=== PATIENT | male | born 1985 | race Caucasian/White ===

== ENCOUNTER 2017-05-09 14:25 | Emergency (ER) | payer SELFPAY ==
[2017-05-09 14:42] VITALS: BP 123/80
[2017-05-09] MEDS ORDERED: LIDOCAINE 1%/EPINEPHRINE INJ 20 ML VIAL INJ ONE (14:56)
[2017-05-09] MEDS ORDERED: CEPHALEXIN 500 MG CAPSULE PO ONE (15:00)
[2017-05-09] MEDS ORDERED: OXYCODONE-ACETAMINOPHEN 5-325 MG TABLET PO ONE (15:00)
[2017-05-09] MEDS ORDERED: LIDOCAINE 1% INJ-PF (10 MG/ML) 30 ML SDV INJ ONE (15:44)
--- NOTE | 2017-05-09 15:44 | RADIOLOGY REPORT (SQ) ---
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 EXAM PARAMETERS: NUMBER OF VIEWS: Three views. TECHNIQUE: AP, lateral and oblique radiographic images acquired of the right hand. LIMITATIONS: None. FINDINGS: MINERALIZATION: Normal. BONES: No acute fracture or dislocation. No worrisome bone lesions. JOINTS: No effusions. SOFT TISSUES: No soft tissue swelling. No foreign body. OTHER: No other significant finding. IMPRESSION: NEGATIVE STUDY OF THE RIGHT HAND. NO RADIOGRAPHIC EVIDENCE OF ACUTE INJURY. TECHNICAL DOCUMENTATION: JOB ID: [id number] [employer]- All Rights Reserved
[2017-05-09] MEDS ORDERED: HYDROCODONE/ACETAMINOPHEN 5-325 MG 6 TAB/DSPK PO PRN (16:24)
--- NOTE | 2017-05-09 16:25 | ER Document Report ---
ED Wound - General Chief Complaint: Laceration Stated Complaint: RIGHT HAND INJURY Time Seen by Provider: 05/09/17 14:50 TRAVEL OUTSIDE OF THE [place] 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 Occurred: Just prior to arrival Onset/Duration: Sudden Context: Injury - right pal along the palmar aspect of the fifth metacarpal Capillary refill: < 3 seconds Sensations intact: Yes Distal pulses present: Yes Associated Symptoms: None - Related Data Allergies/Adverse Reactions: Pertussis Immune Globulin * [Pertussis Immune Globulin] Allergy (Verified 14:38) pertussis vaccine,adsorbed [Pertussis Vaccine,Adsorbed] Allergy (Verified 14:38) pertussis vaccine,fluid [Pertussis Vaccine,Fluid] Allergy (Verified 05/09/17 14: 38) Past Medical History - Social History Smoking Status: Current Every Day Smoker Chew tobacco use (# tins/day): No Frequency of alcohol use: None Drug Abuse: None Family History: Arthritis, CAD, CVA, DM, Hyperlipidemia, Hypertension, Malignancy Patient has suicidal ideation: No Patient has homicidal ideation: No Renal/ Medical History: Denies: Hx Peritoneal Dialysis Musculoskeltal Medical History: Reports Hx Musculoskeletal Deformity, Reports Hx Musculoskeletal Trauma Traumatic Medical History: Reports: Hx Fractures - finger Past Surgical History: Reports: Hx Oral Surgery - Immunizations Immunizations up to date: Yes Hx Diphtheria, Pertussis, Tetanus Vaccination: Yes - 2013 Review of Systems - Review of Systems Constitutional: No symptoms reported Musculoskeletal: Other - pain with movement Skin: See HPI -: Yes All other systems reviewed and negative Physical Exam - Vital signs Vitals: Temp Pulse Resp BP Pulse Ox 98.2 F 80 20 123/80 97 05/09/17 14:39 05/09/17 14:39 05/09/17 14:39 05/09/17 14:39 05/09/17 14:39 - General General appearance: Appears well, Alert In distress: None - Cardiovascular Pulses: Normal: Radial Normal capillary refill: Yes - Extremities Elbow: Normal Forearm: Normal Wrist: Normal Hand: Tender. No: Deformity, Dislocation, Tendon deficit - Skin Skin irregularity: Laceration - 2cm past dermis into subq fat. no tendon involvment. no bleeeding Course - Re-evaluation Re-evalutation: 05/09/17 21:15 Is a 31-year-old male who is hemodynamic stable, no acute distress afebrile. Laceration irrigated and closed at the bedside. Closed with 4 5-0 nylon interrupted suture. Patient tolerated procedure well. Patient placed on prophylactic antibiotics. Patient to follow-up with primary care in 8-10 days of the stitches removed. Patient given strict return precautions. Patient agrees with plan. - Vital Signs Vital signs: Temp Pulse Resp BP Pulse Ox 98.2 F 80 20 123/80 97 05/09/17 14:39 05/09/17 14:39 05/09/17 14:39 05/09/17 14:39 05/09/17 14:39 - Diagnostic Test Radiology reviewed: Image reviewed, Reports reviewed Procedures - Laceration/Wound Repair Right Hand Wound length (cm): 2 Wound's Depth, Shape: Superficial, Linear Laceration pre-procedure: Sterile PPE donned, Betadine prep applied, Sterile drapes applied Anesthetic type: 1% Lidocaine Volume Anesthetic (mLs): 2 Wound explored: Clean Irrigated w/ Saline (mLs): 100 Wound Repaired With: Sutures Suture Size/Type: 5:0, Nylon Number of Sutures: 4 Post-procedure NV exam normal: Yes Complications: No Discharge - Discharge Clinical Impression: Laceration Condition: Good Disposition: HOME, SELF-CARE Instructions: Antibiotic Ointment Protection ([facility]), Laceration Care ([facility]), Prophylactic Antibiotic ([facility]), Soap Cleansing ([facility]), Oral Narcotic Medication ( [facility]) Additional Instructions: Your sutures need to come out in 8-10 days Do not submerge in water Keep clean and dry Prescriptions: Cephalexin Monohydrate [Keflex 500 mg Capsule] 500 mg PO QID #20 capsule Ibuprofen [Motrin 800 mg Tablet] 800 mg PO Q8H PRN #30 tab PRN Reason: Forms: Return to Work Referrals: [facility] [Provider Group] - Follow up as needed
== END 2017-05-09 16:51 | disposition home or self-care (01) ==
LOC: ER 14:25
PROC: 0HQFXZZ Repair Right Hand Skin, External Approach (ICD-10-PCS; principal; 2017-05-09)
DX: S61.411A Laceration without foreign body of right hand, initial encounter (principal); W26.8XXA Contact with other sharp object(s), not elsewhere classified, initial encounter; F17.200 Nicotine dependence, unspecified, uncomplicated; Z88.7 Allergy status to serum and vaccine
CPT/HCPCS: 99283; 73130; 12001; J3490

== ENCOUNTER 2017-09-04 21:00 | Emergency (ER) | payer SELFPAY ==
[2017-09-04 21:25] VITALS: BP 120/79
--- NOTE | 2017-09-04 21:53 | ER Document Report ---
HPI - HPI Pain Level: 4 Context: Patient is a 32-year-old male presents emergency department complaining of a wound on his left ear. Patient states that he showed up yesterday and is tender to touch and red and hot without any active drainage. He denies any injury - DERM Skin Color: Normal, [place] Past Medical History - Social History Smoking Status: Current Every Day Smoker Family History: Arthritis, CAD, CVA, DM, Hyperlipidemia, Hypertension, Malignancy Patient has suicidal ideation: No Patient has homicidal ideation: No Renal/ Medical History: Denies: Hx Peritoneal Dialysis Musculoskeltal Medical History: Reports Hx Musculoskeletal Deformity, Reports Hx Musculoskeletal Trauma Traumatic Medical History: Reports: Hx Fractures - finger Past Surgical History: Reports: Hx Oral Surgery - Immunizations Immunizations up to date: Yes Hx Diphtheria, Pertussis, Tetanus Vaccination: Yes - 2013 Vertical Provider Document - CONSTITUTIONAL Agree With Documented VS: Yes Notes: PHYSICAL EXAM GENERAL: Alert, interacts well. HEENT: NCAT, pale conjunctiva, extraocular movements intact, pupils PERRL. external ear normal, no evidence of external auditory canal tenderness, blood/ drainage, cerumen impaction, TM intact without evidence of effusion, bulging, injection, MMM NECK: Full range of motion. Supple. Trachea midline. LUNGS: Clear to auscultation bilaterally, no wheezes, rales, or rhonchi. No respiratory distress. HEART: Regular rate and rhythm. No murmurs, gallops, or rubs. NEUROLOGICAL: Alert and oriented x4. Normal speech. PSYCH: Normal affect, normal mood. SKIN: Warm, dry, normal turgor. No rashes or lesions noted. Lesion on pinna of the left ear that is tender to touch with surrounding erythema and central head - INFECTION CONTROL TRAVEL OUTSIDE OF THE [place] IN LAST 30 DAYS: No - RESPIRATORY O2 Sat by Pulse Oximetry: 98 Course - Re-evaluation Re-evalutation: 09/04/17 22:45 patient is a 32-year-old male is hemodynamically stable, no acute distress afebrile. Presentation consistent with superficial cellulitis. Patient initiated on antibiotics. Site was punctured with a needle at the bedside for minimal purulent material. Patient follow-up with primary care as needed. Patient agrees with plan - Vital Signs Vital signs: Temp Pulse Resp BP Pulse Ox 98.8 F 71 16 120/79 98 09/04/17 21:20 09/04/17 21:20 09/04/17 21:20 09/04/17 21:20 09/04/17 21:20 Discharge - Discharge Clinical Impression: Cellulitis Condition: Good Disposition: HOME, SELF-CARE Instructions: Cellulitis ([facility]) Additional Instructions: Please utilize warm compresses at the site and please take antibiotics as prescribed. Otherwise he can of Tylenol Motrin [id number] for your pain. Prescriptions: Cephalexin Monohydrate [Keflex 500 mg Capsule] 500 mg PO QID #20 capsule
[2017-09-04] MEDS ORDERED: CEPHALEXIN 500 MG CAPSULE PO ONE (22:50)
[2017-09-04] MEDS ORDERED: ACETAMINOPHEN WITH CODEINE #3 TABLET PO ONE (22:50)
== END 2017-09-04 23:04 | disposition home or self-care (01) ==
LOC: ER 21:00
DX: L03.90 Cellulitis, unspecified (principal); F17.200 Nicotine dependence, unspecified, uncomplicated
CPT/HCPCS: 99282

== ENCOUNTER 2018-01-20 14:24 | Emergency (ER) | payer OTHER ==
[2018-01-20] MEDS ORDERED: LIDOCAINE 1% INJ-PF (10 MG/ML) 30 ML SDV INJ ONE (14:50)
[2018-01-20] MEDS ORDERED: TETANUS/DIPHTHERIA TOX-ADULT 0.5 ML SYR (>=7YO) IM ONE (14:55)
--- NOTE | 2018-01-20 15:35 | ER Document Report ---
ED Hand/Wrist Injury - General Chief Complaint: Laceration Stated Complaint: HAND LACERATION Time Seen by Provider: 01/20/18 14:40 Mode of Arrival: Ambulatory Information source: Patient Notes: 32-year-old male presents to ED for laceration to the hand up to between the second and third finger. States when he first did that he had numbness to both the second and third finger. He states he was cutting a muffler pipe with a tool and it slipped and the muffler pipe cut his hand. He states his tetanus is not up-to-date and he is allergic to pertussis. He is alert and oriented respirations labored unlabored speaking in full even sentences. TRAVEL OUTSIDE OF THE [place] IN LAST 30 DAYS: No - HPI Injury to: Hand Onset: Just prior to arrival Where: Work Timing: Still present Quality of pain: Sharp, Throbbing Severity: Moderate Pain Level: 4 Context: Laceration - Related Data Allergies/Adverse Reactions: Pertussis Immune Globulin * [Pertussis Immune Globulin] Allergy (Verified 14:31) pertussis vaccine,adsorbed [Pertussis Vaccine,Adsorbed] Allergy (Verified 14:31) pertussis vaccine,fluid [Pertussis Vaccine,Fluid] Allergy (Verified 01/20/18 14: 31) Past Medical History - General Information source: Patient - Social History Smoking Status: Current Every Day Smoker Cigarette use (# per day): Yes - 1-1 1/2 packs per day Chew tobacco use (# tins/day): No Smoking Education Provided: Yes - 4 minutes Frequency of alcohol use: None Drug Abuse: None Lives with: Family Family History: Arthritis, CAD, CVA, DM, Hyperlipidemia, Hypertension, Malignancy. denies: COPD, Thyroid Disfunction Patient has suicidal ideation: No Patient has homicidal ideation: No - Past Medical History Cardiac Medical History: Reports: None EENT Medical History: Reports: None Neurological Medical History: Reports: None Endocrine Medical History: Reports: None Renal/ Medical History: Reports: None Malignancy Medical History: Reports None GI Medical History: Reports: Hx Diverticulitis Musculoskeltal Medical History: Reports Hx Musculoskeletal Deformity, Reports Hx Musculoskeletal Trauma Skin Medical History: Reports None Psychiatric Medical History: Reports: None Traumatic Medical History: Reports: Hx Fractures - finger Infectious Medical History: Reports: None Past Surgical History: Reports: Hx Oral Surgery - Immunizations Immunizations up to date: Yes Hx Diphtheria, Pertussis, Tetanus Vaccination: Yes - 01/20/2018 Review of Systems - Review of Systems Constitutional: No symptoms reported EENT: No symptoms reported Cardiovascular: No symptoms reported Respiratory: No symptoms reported Gastrointestinal: No symptoms reported Genitourinary: No symptoms reported Male Genitourinary: No symptoms reported Musculoskeletal: No symptoms reported Skin: Other - Laceration to the back of the right hand between the second and third finger down to about residential down the back of the hand Hematologic/Lymphatic: No symptoms reported Neurological/Psychological: No symptoms reported -: Yes All other systems reviewed and negative Physical Exam - Vital signs Vitals: Temp Pulse Resp BP Pulse Ox 98.0 F 85 14 118/70 96 01/20/18 14:35 01/20/18 14:35 01/20/18 14:35 01/20/18 14:35 01/20/18 14:35 Interpretation: Normal - General General appearance: Appears well, Alert - HEENT Head: Normocephalic, Atraumatic Eyes: Normal Pupils: PERRL - Respiratory Respiratory status: No respiratory distress Chest status: Nontender Breath sounds: Normal Chest palpation: Normal - Cardiovascular Rhythm: Regular Heart sounds: Normal auscultation Murmur: No - Abdominal Inspection: Normal Distension: No distension Bowel sounds: Normal Tenderness: Nontender Organomegaly: No organomegaly - Back Back: Normal, Nontender - Extremities General upper extremity: Normal inspection, Nontender, Normal color, Normal ROM , Normal temperature General lower extremity: Normal inspection, Nontender, Normal color, Normal ROM , Normal temperature, Normal weight bearing. No: Taisha's sign - Neurological Neuro grossly intact: Yes Cognition: Normal Orientation: AAOx4 Berne Coma Scale Eye Opening: Spontaneous Berne Coma Scale Verbal: Oriented Shaun Coma Scale Motor: Obeys Commands Shaun Coma Scale Total: 15 Speech: Normal Motor strength normal: LUE, RUE, LLE, RLE Sensory: Normal - Psychological Associated symptoms: Normal affect, Normal mood - Skin Skin Temperature: Warm Skin Moisture: Dry Skin Color: Normal Skin irregularity: Laceration - Right hand posterior 5 cm flap Location of irregularity: Extremities - Back of right hand Irregularity with: Tenderness Course - Re-evaluation Re-evalutation: 01/20/18 21:07 Patient was treated with doxycycline and emergency room and discharged home with a prescription for Percocet and doxycycline. Patient was also put into a splint to recheck the sutures. Patient was instructed to remove the splint for cleaning and dressing changes and then to replace the splint back as instructed. Patient was discharged home. was able to verbalize understanding of instructions and agree with treatment plan. - Vital Signs Vital signs: Temp Pulse Resp BP Pulse Ox 97.7 F 66 18 126/73 H 97 01/20/18 16:15 01/20/18 16:15 01/20/18 16:15 01/20/18 16:15 01/20/18 16:15 Procedures - Laceration/Wound Repair Right Hand Time completed: 16:05 Wound length (cm): 5 Wound's Depth, Shape: Irregular, Flap Laceration pre-procedure: Sterile PPE donned, Sterile drapes applied, Shur- Clens applied Anesthetic type: 1% Lidocaine Volume Anesthetic (mLs): 7 Irrigated w/ Saline (mLs): 500 Wound Repaired With: Sutures Suture Size/Type: 4:0, Ethilon Number of Sutures: 9 Layer Closure?: No Post-procedure wound care: Sterile dressing applied, Splint applied Post-procedure NV exam normal: Yes Complications: No Discharge - Discharge Clinical Impression: Hand laceration Qualifiers: Encounter type: initial encounter Foreign body presence: without foreign body Laterality: right Qualified Code(s): S61.411A - Laceration without foreign body of right hand, initial encounter Condition: Stable Disposition: HOME, SELF-CARE Additional Instructions: Hand Laceration A laceration on the hand can present special problems. It may be difficult to keep the wound dry. Motion of the fingers can disturb the healing edges. Your work may involve exposure to damaging chemicals or water. Keep the wound clean and dry. If you can't keep the cut dry, undisturbed, and free of chemical exposure, please discuss this with the doctor. If any water or chemical gets onto the dressing, remove it, blot the wound dry, then apply a fresh bandage. Dressings should be changed every day. If you feel the stitches pulling as you move the hand, a splint or other form of protection is needed. If any signs of infection occur (swelling, redness, increasing tenderness, red streaks, tender lumps in the armpit, or fever), see the doctor immediately. SOAP CLEANSING: Gently wash the wound daily using a mild soap (like Ivory, Phisoderm, Neutrogena). Use warm water, rubbing gently until all debris, ooze, and crusting have been washed from the wound. Allow to dry briefly (about 10 minutes) after cleaning. Repeat this cleansing at least three times a day for the first two days and then once or twice a day. ANTIBIOTIC OINTMENT PROTECTION: Your wounds are such that dressing them is not practical or optional. After cleansing, you should apply a thin coating of antibiotic ointment ( Bacitracin, not Neosporin) to the wounds at least three times daily. This lessens infection risk, and may decrease the amount of scarring. Use a q-tip or dull butter knife, not your finger, to apply this ointment. Any debris or ooze which builds up in the ointment should be gently rubbed off with a sterile gauze pad. Harder crusting may need to be gently scrubbed off with a clean wash cloth with soap and warm water, perhaps applying a warm, wet wash cloth to the wound for ten minutes first. Development of redness, severe itching, or blistering may mean allergy to the ointment. See the doctor. Doxycycline Doxycycline (Vibramycin, Doryx) is an antibiotic of the tetracycline family. This type of drug is useful for infections of the respiratory tract and genital tract, and is sometimes used for intestinal infections. Unlike most tetracyclines, doxycycline can be taken with food. It is longer acting, and (usually) less prone to side effects than regular tetracycline. Tetracycline antibiotics can stain immature teeth and SHOULD NOT BE TAKEN BY CHILDREN, NURSING MOTHERS, OR WOMEN. Tetracyclines can make you more prone to sunburn. Abdominal cramping, nausea, and diarrhea are occasional side effects. Women may experience vaginal yeast infections. Call the doctor at once if you develop hives, itching, shortness of breath , or lightheadedness. ORAL NARCOTIC MEDICATION: You have been given a prescription for pain control. This medication is a narcotic. It's best taken with food, as nausea can result if taken on an empty stomach. Don't operate machinery or drive within six hours of taking this medication. Do not combine this medicine with alcohol, or with any medication which can cause sedation (such as cold tablets or sleeping pills) unless you get permission from the physician. Narcotics tend to cause constipation. If possible, drink plenty of fluids and eat a diet high in fiber and fruits. TETANUS IMMUNIZATION GIVEN: You have been given an immunization against tetanus. Please record this in your records. In general, a booster is needed only once every 10 years. The tetanus shot protects against tetanus or "lockjaw," which is a complication of certain wound infections (the tetanus shot cannot protect against the actual infection). The immunization site may become warm and red due to local reaction. If this occurs, apply warm compresses and take aspirin or ibuprofen to reduce inflammation and discomfort. Return for evaluation if the reaction becomes severe. FOLLOW-UP CARE: Please return in __3___ days for an infection check and dressing change. Your sutures should be removed in ___10__ days. To facilitate a timely removal of your sutures, you may return to the Emergency Department at [facility]. You do not need to call for an appointment, but the best time to come in for suture removal is early in the morning. If you have been referred to another physician for follow-up care, call that physicians office for an appointment as you were instructed. If you experience a significant change in your laceration, or if you are concerned there may be an infection (swelling, redness, drainage, increasing tenderness, red streaks, tender lumps in the armpit or groin above the laceration, or fever) , return to the Emergency Department immediately re-evaluation. Prescriptions: Oxycodone HCl/Acetaminophen [Percocet 5-325 mg Tablet] 1 tab PO Q6HP PRN #7 tablet PRN Reason: Doxycycline Hyclate 100 mg PO BID #14 tablet Forms: Smoking Cessation Education, Restricted Release, Return to Work Referrals: VIRAL KEANE DO [ACTIVE STAFF] - 01/23/18
[2018-01-20] MEDS ORDERED: DOXYCYCLINE HYCLATE 100 MG TABLET PO ONE (15:54)
[2018-01-20 16:22] VITALS: BP 126/73
== END 2018-01-20 16:22 | disposition home or self-care (01) ==
LOC: ER 14:24
PROC: 0HQFXZZ Repair Right Hand Skin, External Approach (ICD-10-PCS; principal; 2018-01-20)
DX: S61.411A Laceration without foreign body of right hand, initial encounter (principal); R20.0 Anesthesia of skin; W27.8XXA Contact with other nonpowered hand tool, initial encounter; F17.210 Nicotine dependence, cigarettes, uncomplicated
CPT/HCPCS: 99406; 99282; 90471; 90714; 12002; J3490

== ENCOUNTER 2019-09-13 22:40 | Emergency (ER) | payer SELFPAY ==
[2019-09-13 23:06] LABS: ABSOLUTE EOSINOPHILS # (AUTO) 0.2 10^3/uL (0.0-0.6); ABSOLUTE MONOCYTES (AUTO) 0.8 10^3/uL (0.1-1.4); TOTAL CELLS COUNTED % (AUTO) 100 %
[2019-09-13 23:13] LABS: ABSOLUTE LYMPHOCYTES (AUTO) 2.1 10^3/uL (0.5-4.7); ABSOLUTE NEUT (AUTO) 5.8 10^3/uL (1.7-8.2); BASOPHILS % (AUTO) 0.5 % (0-2); EOSINOPHILS % (AUTO) 2.3 % (0-6); HEMATOCRIT 44.1 % (37.9-51.0); HEMOGLOBIN 15.1 g/dL (13.5-17.0); LYMPHOCYTES % (AUTO) 23.1 % (13-45); MEAN CORPUSCULAR HEMOGLOBIN 30.7 pg (27.0-33.4); MEAN CORPUSCULAR HGB CONC 34.2 g/dL (32.0-36.0); MEAN CORPUSCULAR VOLUME 90 fl (80-97); MONOCYTES % (AUTO) 8.9 % (3-13); PLATELET COUNT 263 10^3/uL (150-450); RED BLOOD COUNT 4.91 10^6/uL (4.35-5.55); RED CELL DISTRIBUTION WIDTH 14.1 % (11.5-14.0); SEGMENTED NEUTROPHILS % (AUTO) 65.2 % (42-78)
[2019-09-13 23:22] LABS: ALBUMIN 4.4 g/dL (3.5-5.0); ALKALINE PHOSPHATASE 46 U/L (38-126); ANION GAP 9 (5-19); ASPARTATE AMINO TRANSFERASE 19 U/L (17-59); BILIRUBIN,DIRECT 0.1 mg/dL (0.0-0.4); BILIRUBIN,TOTAL 0.6 mg/dL (0.2-1.3); BLOOD UREA NITROGEN 12 mg/dL (7-20); CALCIUM 9.8 mg/dL (8.4-10.2); CARBON DIOXIDE 30 mmol/L (22-30); CHLORIDE 107 mmol/L (98-107); GLUCOSE 80 mg/dL (75-110); POTASSIUM 4.1 mmol/L (3.6-5.0); TOTAL PROTEIN 7.3 g/dL (6.3-8.2)
[2019-09-13 23:25] LABS: APPEARANCE,URINE CLOUDY; BILIRUBIN,URINE NEGATIVE (NEGATIVE); COLOR,URINE YELLOW; GLUCOSE, URINE NEGATIVE (NEGATIVE); KETONES,URINE NEGATIVE (NEGATIVE); LEUKOCYTE ESTERASE,URINE NEGATIVE (NEGATIVE); NITRITE,URINE NEGATIVE (NEGATIVE); PROTEIN,URINE NEGATIVE (NEGATIVE); URINE SPECIFIC GRAVITY 1.018
[2019-09-14] MEDS ORDERED: DIAZEPAM INJ 10 MG/2 ML DISP.SYRIN IV ONE (01:40)
[2019-09-14] MEDS ORDERED: KETOROLAC TROMETHAMINE INJ/PF 30 MG/1 ML SDV IV ONE (01:41)
[2019-09-14] MEDS ORDERED: NORMAL SALINE 1000 ML 1,000 ML IV ONE (01:41)
--- NOTE | 2019-09-14 02:16 | ER Document Report ---
ED General - General Chief Complaint: Abdominal Pain Stated Complaint: ABDOMINAL PAIN Time Seen by Provider: 09/14/19 01:29 Notes: Patient is a 34-year-old male that comes emergency department for chief complaint of pain that wraps around from his side to both his front at the lower part of the ribs on the right and also around to his back. He states it is much worse with any movement and he cannot get comfortable or sleep. He states this has been worsening over the past 3 days or so. 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 He denies difficulty breathing, fever, dizziness, nausea/vomiting. He denies specific pain in the abdomen other than at the lower ribs where he indicates it. He denies any daily medications. He drinks alcohol occasionally, smokes, denies recreational drugs, denies any surgeries. TRAVEL OUTSIDE OF THE [place] IN LAST 30 DAYS: No - Related Data Allergies/Adverse Reactions: Pertussis Immune Globulin * [Pertussis Immune Globulin] Allergy (Verified 09/13/19 22:41) pertussis vaccine,adsorbed [Pertussis Vaccine,Adsorbed] Allergy (Verified 09/13/19 22:41) pertussis vaccine,fluid [Pertussis Vaccine,Fluid] Allergy (Verified 09/13/19 22:41) Past Medical History - General Information source: Patient - Social History Smoking Status: Current Every Day Smoker Frequency of alcohol use: Occasional Drug Abuse: None Lives with: Family Family History: Arthritis, CAD, CVA, DM, Hyperlipidemia, Hypertension, Malignancy. denies: COPD, Thyroid Disfunction Patient has suicidal ideation: No Patient has homicidal ideation: No Renal/ Medical History: Denies: Hx Peritoneal Dialysis GI Medical History: Reports: Hx Diverticulitis Musculoskeletal Medical History: Reports Hx Musculoskeletal Deformity, Reports Hx Musculoskeletal Trauma Traumatic Medical History: Reports: Hx Fractures - finger Past Surgical History: Reports: Hx Oral Surgery - Immunizations Immunizations up to date: Yes Hx Diphtheria, Pertussis, Tetanus Vaccination: Yes - 01/20/2018 Review of Systems - Review of Systems Constitutional: No symptoms reported EENT: No symptoms reported Cardiovascular: No symptoms reported Respiratory: No symptoms reported Gastrointestinal: No symptoms reported Genitourinary: No symptoms reported Male Genitourinary: No symptoms reported Musculoskeletal: See HPI Skin: No symptoms reported Hematologic/Lymphatic: No symptoms reported Neurological/Psychological: No symptoms reported Physical Exam - Vital signs Vitals: Temp Pulse Resp BP Pulse Ox 97.8 F 65 18 126/72 H 99 09/13/19 22:45 09/13/19 22:45 09/13/19 22:45 09/13/19 22:45 09/13/19 22:45 - Notes Notes: GENERAL: Alert, interacts well. Moves with obvious discomfort but when he is still he has no signs of distress HEAD: Normocephalic, atraumatic. EYES: Pupils equal, round, and reactive to light. Extraocular movements intact. ENT: Oral mucosa moist, tongue midline. Oropharynx unremarkable. Airway patent. NECK: Full range of motion. Supple. Trachea midline. LUNGS: Clear to auscultation bilaterally, no wheezes, rales, or rhonchi. No respiratory distress. There is tenderness over the right lower and lateral ribs along the right side. No crepitus or swelling. No signs of trauma. HEART: Regular rate and rhythm. No murmur ABDOMEN: Soft, non-tender. Non-distended. EXTREMITIES: Moves all 4 extremities spontaneously. No edema, normal radial and dorsalis pedis pulses bilaterally. No cyanosis. BACK: Tenderness along the left lateral back continuing from nontender location along the left side extending to the parathoracic musculature. Multiple areas of rigid muscles consistent with muscle spasm. No signs of trauma. No cervical, thoracic, lumbar midline tenderness. No saddle anesthesia, normal dist al neurovascular exam. Moves all extremities in full range of motion. NEUROLOGICAL: Alert and oriented x3. Normal speech. Cranial nerves II through XII grossly intact. PSYCH: Normal affect, normal mood. SKIN: Warm, dry, normal turgor. No rashes or lesions noted. Course - Re-evaluation Re-evalutation: Patient appears comfortable unless he moves, when he moves he has obvious discomfort and wincing, he is tender muscles along the right lateral lower ribs and especially over the posterior back extending to the parathoracic muscles. He also has rigid muscle fibers in these areas. Strongly a musculoskeletal component, this is supported by patient's reported work and worsening symptoms. No signs of trauma. I did review work-up from triage. CBC, chemistry, lipase unremarkable. Because of his areas of symptoms like chest x-ray was performed, this x-ray appears to show pneumonia however. Patient does not have fever or cough. I still believe this is musculoskeletal in nature but I discussed with patient and because this is located on the same side he will be placed on antibiotics for possible atypical pneumonia. He was also given muscle relaxers while he was here, steroids while he was here. Family requesting to leave at this time, patient reevaluated and states he feels much improved, provided with work-release, discussed expectations, follow-up, and return precautions. Family state appreciation and agreement. - Vital Signs Vital signs: Temp Pulse Resp BP Pulse Ox 97.6 F 59 L 14 117/73 96 09/14/19 04:07 09/14/19 04:07 09/14/19 04:07 09/14/19 04:07 09/14/19 04:07 - Laboratory Result Diagrams: 09/13/19 22:53 09/13/19 22:53 Laboratory results interpreted by me: 09/13/19 09/13/19 09/13/19 22:53 22:53 22:53 RDW 14.1 H Sodium 145.6 H Urine Urobilinogen 2.0 H Discharge - Discharge Clinical Impression: Rib pain, Flank pain Condition: Stable Disposition: HOME, SELF-CARE Additional Instructions: Your laboratory work-up is reassuring. Your chest x-ray indicates possible pneumonia on the right side. Your evaluation is also very suggestive of muscular spasms. You have been treated with steroids to help with this, you can also take the prescribed muscle relaxer (especially to sleep) and anti-in flammatories. Take the antibiotics as prescribed to completion. Rest and drink plenty of fluids. Symptoms should resolve with time. Stop smoking. Follow-up with primary care. Return if you worsen including spiking fever, difficulty breathing, passing out, developing numbness, or any other concerning or worsening symptoms. Prescriptions: Doxycycline Hyclate 100 mg PO BID #14 capsule Cyclobenzaprine HCl [Flexeril 5 mg Tablet] 1 - 2 tab PO TID PRN #20 tablet PRN Reason: Naproxen 500 mg PO BID PRN #20 tablet PRN Reason: Forms: Return to Work
--- NOTE | 2019-09-14 03:52 | RADIOLOGY REPORT (SQ) ---
EXAM DESCRIPTION: XR CHEST 2 VIEWS COMPLETED DATE/TME: 09/14/2019 01:40 CLINICAL HISTORY: 34 years, Male, rib pain on right side COMPARISON: None. NUMBER OF VIEWS: Two TECHNIQUE: Two views of the chest LIMITATIONS: None. FINDINGS: There are increased right lower lobe interstitial opacities. The heart is normal in size. There is no pneumothorax or pleural effusion. The bones are unremarkable. IMPRESSION: Increased right lower lobe interstitial opacities, concerning for pneumonia. copyright 2010 [employer]- All Rights Reserved
[2019-09-14] MEDS ORDERED: DOXYCYCLINE HYCLATE 100 MG TABLET PO ONE (03:54)
[2019-09-14] MEDS ORDERED: DEXAMETHASONE SOD PHOS INJ 10 MG/1 ML VIAL IV ONE (03:56)
[2019-09-14 04:11] VITALS: BP 117/73
== END 2019-09-14 04:24 | disposition home or self-care (01) ==
LOC: ER 22:40
DX: R10.9 Unspecified abdominal pain (principal); R07.81 Pleurodynia; M54.9 Dorsalgia, unspecified; F17.200 Nicotine dependence, unspecified, uncomplicated; Z88.7 Allergy status to serum and vaccine
CPT/HCPCS: 99283; 96361; 96374; 96375; 36415; 83690; 85025; 80053; 81001; 71046; J3360; J1885; J7030; J1100

== ENCOUNTER 2020-08-14 17:16 | Emergency (ER) | payer OTHER ==
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
[2020-08-14] MEDS ORDERED: ONDANSETRON HCL INJ/PF 4 MG/2 ML SDV IV ONE (19:15)
[2020-08-14] MEDS ORDERED: FENTANYL CITRATE INJ/PF 100 MCG/2 ML AMPUL IV ONE (19:15)
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
[2020-08-14 20:17] VITALS: BP 123/87
== END 2020-08-14 20:18 | disposition home or self-care (01) ==
LOC: ER 17:16
DX: S40.012A Contusion of left shoulder, initial encounter (principal); S30.1XXA Contusion of abdominal wall, initial encounter; R07.81 Pleurodynia; R10.84 Generalized abdominal pain; V89.2XXA Person injured in unspecified motor-vehicle accident, traffic, initial encounter; F17.210 Nicotine dependence, cigarettes, uncomplicated
CPT/HCPCS: 99285; 96374; 96375; 71045; 73030; 71260; 74177; J3010; J2405